=== PATIENT | female | born 1950 | race Caucasian/White ===

== ENCOUNTER 2016-12-21 08:12 | Day surgery (SDC) | payer MEDICARE ==
[~2016-12-21] VITALS: Ht 160 cm; Wt 108.9 kg
[~2016-12-21 08:12] MED LIST: 0.9% Sodium Chloride 1,000 ML IV SCH; CHOL5000 PO; FURO40TA4 PO; HYDR-4003 PO; IBUP800T28 PO; LEVO50TA6 PO; LISI10TA PO; POTA10TA12 PO; SIMV20TA4 PO; Sodium Chloride LOK Flush 10 mL Syringe IV PRN; fentaNYL-PF 50 mCg/mL 2 mL Inj IVPUSH PRN
[2016-12-21 09:03] VITALS: BP 144/82; PULSE 83; RESP 17; O2SAT 99
[2016-12-21 09:32] VITALS: BP 92/72; PULSE 79; RESP 14; O2SAT 96
[2016-12-21 09:43] VITALS: BP 111/61; PULSE 75; RESP 14; O2SAT 95
[2016-12-21 09:49] VITALS: BP 134/84; PULSE 79; RESP 14
--- NOTE | 2016-12-21 14:29 | ENDO ---
[address] [address] ENDOSCOPY PROCEDURE PATIENT: KEVIN GAMEZ : 1950 MR#: [id number] ADMIT: 12/21/2016 JOB ID: [id number] DATE OF SERVICE: 12/21/2016 TYPE OF OPERATION: Colonoscopy with snare polypectomy. PREOPERATIVE DIAGNOSIS(ES): Family history of colon cancer. POSTOPERATIVE DIAGNOSIS(ES): 1. Small internal hemorrhoids. 2. Moderate sigmoid diverticulosis. 3. A 5 mm descending colon polyp, removed by hot snare polypectomy. ANESTHESIA: Fentanyl 100 mcg, Versed 6 mg IV administered. COMPLICATIONS: None. BLOOD LOSS: Minimal. DESCRIPTION OF PROCEDURE: After risks and benefits explained to the patient, informed consent was obtained. After anesthesia administered, a colonoscope was then inserted from the rectum to the cecum. Mucosa carefully examined. Prep of the patient was excellent. After the procedure was done, the scope withdrawn and procedure terminated. FINDINGS: Upon inspection of the anus, no masses, hemorrhoids, ulcers, or fissures that were seen. Throughout the entire examination, there was a 5 mm polyp seen in the descending colon, removed by hot snare polypectomy. There was also mild sigmoid diverticulosis. No other polyps or masses were seen. Retroflexion showed small internal hemorrhoids. IMPRESSION: 1. Small internal hemorrhoids. 2. Moderate sigmoid diverticulosis. 3. A 5 mm descending colon polyp, removed by hot snare polypectomy. RECOMMENDATIONS: Await pathology results. High-fiber diet. Repeat colonoscopy in five years.
--- NOTE | 2016-12-24 14:23 | PATH ---
SURGICAL PATHOLOGY Attending Physician:Yazan Schmitt MD CASE STATUS: Signed Out PATIENT NAME: KEVIN GAMEZ PID: [id number] : 1950 DATE COLLECTED:12/21/2016 17:47 SPECIMEN: Colon, Biopsy CLINICAL HISTORY: 1). DESCENDING POLYP FINAL DIAGNOSIS: 1.DESCENDING COLON POLYP: SERRATED POLYP, CONSISTENT WITH HYPERPLASTIC POLYP. EVALUATION LIMITED BY TANGENTIAL SECTIONING. NO CYTOLOGIC DYSPLASIA ICD10 CODE K63.5 GROSS DESCRIPTION: The specimen is received in one formalin filled container labeled with the patient's name, sublabeled "descending polyp" and consists of a 0.6 x 0.4 x 0.3 CM portion of tissue which is entirely submitted in one cassette. 12/21/2016 DAC MICRO DESCRIPTION: See diagnosis. ICD-9 CODES: CPT CODES: 1: 26072 Electronically Signed Out Vania Berman MD [facility]ology [facility] [address], [place] [address] Technical component performed at [facility], [facility] [address], [place], [address]
== END 2016-12-21 23:59 | disposition home or self-care (01) ==
LOC: END 08:12
PROVIDERS: ATTEND Internal Medicine Gastroenterology
DX: Z12.11 Encounter for screening for malignant neoplasm of colon (principal); K63.5 Polyp of colon; K57.30 Diverticulosis of large intestine without perforation or abscess without bleeding; K64.8 Other hemorrhoids; I10 Essential (primary) hypertension; Z80.0 Family history of malignant neoplasm of digestive organs; Z79.899 Other long term (current) drug therapy
CPT/HCPCS: 45385; G0500; J2250; J3010; J7030